=== PATIENT | female | born 1965 | race Asian ===

== ENCOUNTER 2018-07-26 21:29 | Emergency (ER) | payer SELFPAY ==
[~2018-07-26] VITALS: Ht 165.1 cm; Wt 71.1 kg
[~2018-07-26 21:29] MED LIST: AMLO10TA4 PO; LEVO500T47 PO; LOVA10TA PO; METR500T PO
[2018-07-26 21:31] VITALS: BP 153/80
--- NOTE | 2018-07-26 21:47 | NUR ---
PT HERE FOR URI SYMPTOMS X 2WEEKS. PT REPORTS NOT GETTING BETTER. PT REPORTS NON PRODUCTIVE COUGH.
--- NOTE | 2018-07-26 22:26 | NUR ---
PT MEDICATED FOR PAIN.
[2018-07-26] MEDS ORDERED: PROMETHAZINE/COD. 10MG/6.25MG/5 ML ORAL SOL PO ONE (22:30)
--- NOTE | 2018-07-26 22:59 | NUR ---
Patient/Caregiver given discharge instructions and they have confirmed that they understand the instructions. Patient ambulatory with steady gait.
== END 2018-07-26 23:01 | disposition home or self-care (01) ==
LOC: ED 22:25
DX: R05 Cough (principal)
CPT/HCPCS: 71046; 99283

== ENCOUNTER 2018-11-16 08:43 | Emergency (ER) | payer BC, OTHER ==
[~2018-11-16] VITALS: Ht 165.1 cm; Wt 66.0 kg
--- NOTE | 2018-11-16 09:16 | NUR ---
REPORT FROM TRISH GOMEZ. CRISTIAN ANDRE. C/.O NASAL CONGESTION, PRODUCTIVE COUGH FOR ONE WEEK NOW [employer]ARCEL[place] AT WORK TODAY APPEARS WELL/CLEAR LUNGS UPDATED ON ESTIMATE
[2018-11-16] MEDS ORDERED: MECLIZINE CHEWABLE 25 MG TAB PO ONE (09:30)
[2018-11-16] MEDS ORDERED: MECLIZINE CHEWABLE 25 MG TAB ONE (09:46)
--- NOTE | 2018-11-16 09:58 | NUR ---
Medicated per emar Up to restroom to void-no difficulty Mild wet cough noted Vitals updated-wnl
--- NOTE | 2018-11-16 10:14 | NUR ---
With reassessment patient reports "i feel way less dizzy." Able to rapidly move head/body with limited dizzinessLab at bedside to draw labs
[2018-11-16 10:24] LABS: BASOPHILS # (AUTO) 0.01 x10^3/uL (0-0.1); BASOPHILS % (AUTO) 0 % (0-1); EOSINOPHILS # (AUTO) 0.13 x10^3/uL (0-0.4); EOSINOPHILS % (AUTO) 3 % (1-7); LYMPHOCYTES # (AUTO) 1.44 x10^3/uL (1-3.4); LYMPHOCYTES % (AUTO) 37 % (22-44); MD NO; MEAN CORPUSCULAR HEMOGLOBIN 29.3 pg (27.0-34.8); MEAN CORPUSCULAR HGB CONC 33.6 g/dL (32.4-35.8); MEAN CORPUSCULAR VOLUME 87.1 fL (80-100); MONOCYTES # (AUTO) 0.16 x10^3/uL (0.2-0.8); MONOCYTES % (AUTO) 4 % (2-9); NEUTROPHILS % (AUTO) 56 % (42-75); PLATELET COUNT 240 x10^3/uL (130-400); RED BLOOD COUNT 5.45 x10^6/uL (3.82-5.3); RED CELL DISTRIBUTION WIDTH 13.5 % (9.6-15.2)
[2018-11-16 10:34] LABS: ALANINE AMINOTRANSFERASE 17 U/L (12-78); ALBUMIN 3.6 g/dL (3.4-5.0); ANION GAP 6 mmol/L (5-15); CALCIUM 8.3 mg/dL (8.5-10.1); CHLORIDE 111 mmol/L (98-107); CREATININE 0.91 mg/dL (0.55-1.02)
[2018-11-16 10:35] LABS: ALKALINE PHOSPHATASE 70 U/L (45-117); BILIRUBIN,TOTAL 0.3 mg/dL (0.2-1.0); TOTAL PROTEIN 7.9 g/dL (6.4-8.2)
[2018-11-16 11:18] VITALS: BP 153/77
== END 2018-11-16 11:21 | disposition home or self-care (01) ==
LOC: ED 09:43
DX: H81.399 Other peripheral vertigo, unspecified ear (principal); H81.10 Benign paroxysmal vertigo, unspecified ear; R05 Cough; R11.10 Vomiting, unspecified
CPT/HCPCS: 36415; 71045; 80053; 83690; 85025; 93005; 99284